=== PATIENT | female | born 1955 | race Caucasian/White ===

== ENCOUNTER 2024-04-24 20:38 | Emergency (ER) | payer MEDICARE, MEDICAID, SELFPAY ==
[2024-04-24 20:39] VITALS: BMI 17.2
--- NOTE | 2024-04-24 20:40 | PD.EDHA ---
ED Headache RME/HPI General Chief Complaint: Headache Stated Complaint: HEADACHE Time Seen by Provider: 04/24/24 20:41 Source: patient and family Arrival date/time: 04/24/24 20:38 Mode of arrival: ambulatory Limitations: no limitations RME / HPI RME / HPI Narrative: Dr. Healy?s Main ED Evaluation: The patient is a 68-year-old female, accompanied by her son, presenting to the emergency department with complaints of a sudden, severe headache, the worse she's had in her life. She reports that the onset occurred approximately one hour prior to arrival. She describes feeling a pop sensation in her head immediately before the headache began, which occurred while she was very upset. The patient denies any other associated symptoms. She also denies any prior history of similar headaches or other medical complaints at this time. Related Data Home Medications ?Medication ?Instructions ?Recorded ?Confirmed aeybqnxvhbrx-Ih-jygv-minerals 2 tab PO DAILY 01/14/18 01/14/18 (Multiple Vitamin, Womens tablet) Allergies Allergy/AdvReac Type Severity Reaction Status Date / Time No Known Allergies Allergy Verified 01/15/18 16:18 Review of Systems Review of Systems Systems Reviewed: All systems reviewed, normal except as documented Past Medical History Past Medical History NEUROLOGIC: Negative Neurological Disorders or Seizures CARDIAC: Negative Cardiac Disorders or Congestive Heart Failure RESPIRATORY: Negative Chronic Obstructive Pulmonary Disease (COPD) GASTROINTESTINAL: Negative Gastrointestinal Disorders GENITOURINARY: Negative Genitourinary Disorders or Renal Disease REPRODUCTIVE: Positive Previous Pregnancies (x2) MUSCULOSKELETAL: Negative Musculoskeletal Disorders ENDOCRINE: Negative Endocrine Disorders, Diabetes Mellitus Type 1 or Diabetes Mellitus Type 2 HEMATOLOGIC: Negative Blood Disorders OTHER HISTORY: Positive Measles; Negative Hospitalization, Autoimmune Disease, Down Syndrome, Developmental Delay, Shingles, Falls, Blood Transfusions, Blood Transfusion Reaction or Anesthesia Reactions Family History FAMILY HISTORY: Positive Family Cardiac Disorders (father (htn), (cva)) Social History SMOKING STATUS: Never smoker Past Medical History Comments PMH COMMENT: Osteomyelitis, fifth digit, right hand, 2015; cervical spine disk degeneration; atrophic vaginitis ED Exam Narrative Physical exam: GENERAL APPEARANCE: alert and oriented x 4, well-developed, well-nourished, no acute distress VITALS: All vitals were reviewed and the pulse ox is 96% on room air, which is normal according to my interpretation. HEENT: Normocephalic, atraumatic; pupils equal, round, reactive to light; EOMI; mucous membranes pink, moist; oropharynx clear NECK: Supple LUNGS: CTABL; no wheezes, no rales, no rhonchi HEART: Regular rate, regular rhythm; normal S1, S2; no murmurs ABDOMEN: non distended; normal BS; soft, no tenderness, no guarding, no rebound; no masses, no organomegaly, no hernia BACK: no CVA tenderness EXTREMITIES: atraumatic; no edema NEUROLOGIC: awake; alert and oriented x4; cranial nerves II-XII grossly intact; no focal sensory or motor deficits PSYCHIATRIC: appropriate mood and affect SKIN: warm, dry, normal color; no rashes General Limitations: Present no limitations Course Course Course Narrative: 2221: Discussed the possibility of needing a lumbar puncture and further work-up with the patient and family at bedside. Upon further discussion, patient states she does not want any procedures or further work-up at this time. Risks versus benefits were discussed with the patient declining any further work-up, and the inability to r/o CVRCVS. Patient decided to sign out AMA. Quality Measures Suspected type of Stroke: Unknown at this time Last known well (date): 04/24/24 Tenecteplase given: Reason(s) TPA not given: Symptoms suggest SAH not given stroke and none Orders Category Date Time Status Bedside Blood Glucose NOW Care 04/24/24 20:41 Active Search Strategist NOW Care 04/24/24 20:41 Active Continuous Pulse Oximetry NOW Care 04/24/24 20:41 Completed EKG (ED ONLY) *Do not use* NOW Care 04/24/24 20:41 Completed In and Out Catheter NEEDED Care 04/24/24 20:41 Active Insert IV NOW Care 04/24/24 20:41 Active Miscellaneous Nursing Order NOW Care 04/24/24 22:37 Active NIH Stroke Scale now Care 04/24/24 20:41 Active NPO NOW Care 04/24/24 20:41 Active Nurse Swallow Screen x1 Care 04/24/24 20:41 Active Consult to Neurology / Tele-Neurology Routine Cons 04/24/24 20:[address] angio stroke protocol Stat Exams 04/24/24 20:[address] stroke protocol Stat Exams 04/24/24 20:41 Completed EKG (ED Only) Stat Exams 04/24/24 20:41 Draft Alcohol, Blood Medical Stat Lab 04/24/24 20:50 Completed CBC Stat Lab 04/24/24 20:50 Completed Comprehensive Metabolic Panel Stat Lab 04/24/24 20:50 Completed Drug Screen,Urine Stat Lab 04/24/24 20:41 Ordered Magnesium Stat Lab 04/24/24 20:50 Completed Partial Thromboplastin Time Stat Lab 04/24/24 20:50 Completed Prothrombin Time with INR Stat Lab 04/24/24 20:50 Completed Troponin I Stat Lab 04/24/24 20:50 Completed Urinalysis Stat Lab 04/24/24 20:41 Ordered Acetaminophen Ivpb [Ofirmev Inj] Med 04/24/24 20:43 Discontinued 1,000 mg in 100 ml IV NOW DiphenhydrAMINE INJ [Benadryl Inj] Med 04/24/24 20:42 Discontinued 25 mg IVP X1 ONE Metoclopramide Inj [Reglan Inj] Med 04/24/24 20:42 Discontinued 10 mg IVP X1 ONE Oxygen Delivery NOW RT 04/24/24 20:41 Active Vital Signs Vital signs: Vital Signs Temperature 98.5 F 04/24/24 21:18 Pulse Rate 66 04/24/24 21:18 Respiratory Rate 16 04/24/24 21:18 Blood Pressure 136/76 H 04/24/24 21:18 Pulse Oximetry (%) 96 04/24/24 21:18 Oxygen Delivery Method Room Air 04/24/24 21:18 Procedures -ED Procedure Comment Patient's EKG at 21:12 showed NSR at 61 bpm with normal axis, no ectopy. No signs of acute ischemia. Headache MDM Narrative MDM Narrative:: Scribe Attestation: Chantal Salgado am scribing for and in the presence of Dr. Healy. Provider Notation: Although this document has been carefully reviewed, there may still be some phonetic and other typographical errors. These errors are purely grammatical due to imperfections in the software program and should not be construed in any way to compromise the substance of the patient's medical care during this visit. Patient data External records reviewed:: [facility] previous records Clinical information provided by:: patient Social determinants that could affect healthcare access:: none Patient has the following chronic illnesses:: See PMH How is presenting disease/condition affected by chronic disease/condition?: uneffected by Evaluation data The following diagnostics were reviewed and interpreted by me:: lab results, radiology exam(s) and EKG tracing(s) Lab and/or radiology exams considered but not ordered:: None Interpretation Summary: I personally reviewed the radiology data and agree with the radiologist's interpretation. Examination: CT brain head without contrast. Date and time of exam:April 24, [id number] hours INDICATIONS: Stroke alert, onset severe headache today, focal neurologic deficit Findings: No significant ventricular enlargement. Intra-axial or extra-axial hemorrhage density is not seen. No mass effect or midline shift Basal cisterns are not remarkable. Fourth ventricle is midline. Cranial vault intact. Impression: Negative for acute hemorrhage, mass effect or midline shift Dictated By: Ger Esteves MD Medications / Prescriptions Medications or Prescriptions considered but not ordered:: None Medication administrations:: Medication Administration History Discontinued Medications Diphenhydramine HCl (Diphenhydramine Inj 50 Mg/Ml Vial) 25 mg IVP X1 ONE Stop: 04/24/24 20:43 Last Admin: 04/24/24 21:10 Dose: 25 mg Documented By: CARISA Acetaminophen (Ofirmev Inj) 1,000 mg in 100 mls @ 250 mls/hr IV NOW ONE Stop: 04/24/24 21:06 Last Infusion: 04/24/24 21:31 Dose: Infused Documented By: Admin: 04/24/24 21:10 Dose: 250 mls/hr Documented By: CARISA Metoclopramide HCl (Metoclopramide Inj 5 Mg/Ml Vial 2 Ml) 10 mg IVP X1 ONE; Protocol Stop: 04/24/24 20:43 Last Admin: 04/24/24 21:10 Dose: 10 mg Documented By: TC As above, if any Consultations Consultation(s) initiated? (list below): Yes Consultation #1 (Physician, Specialty, Details): Case discussed with teleneurology, Dr. 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 He recommends performing either a lumbar puncture (LP) or head CT for further evaluation and suggests follow-up within 12 hours. The plan is to admit the patient for overnight observation. Dr. Crooks advises maintaining systolic blood pressure below 180 mmHg and managing the patient?s pain. He notes that with RCVS, headaches may resolve temporarily but can recur, with a risk of progression to subarachnoid hemorrhage (SAH) in some cases. Time: 21:30 Consultation #2 (Physician, Specialty, Details): Discussed case with [Dr. Sanon, attending Dr. Vincent] from Hospitalist service regarding admission. Discussed patients ED course, exam findings, labs, and radiology results. The Hospitalist [agrees] to accept the patient for admission. Time: 22:04 Diagnosis Differential diagnosis headache: other (SAH, intracranial bleed, temporal arteritis, cluster headache, tension headache) Most likely diagnosis given after review of the tests above:: See clinical impression Admission Indicated Admission indicated?: indicated Admission Request Was there a request for admission?: Yes Disposition Plan Disposition Plan: other (specify) (Patient signed out AMA.) Critical Care Time Critical Care Time Critical Care Time: Yes Total Critical Care Time (min.): 45 Attestation: The high probability of sudden, clinically significant deterioration in the patient?s condition required the highest level of my preparedness to intervene urgently. ? The services I provided to this patient were to treat and/or prevent clinically significant deterioration. Services included the following: chart data review, reviewing nursing notes and/or old charts, documentation time, salon sales consultant collaboration regarding findings and treatment options, medication orders and management, direct patient care, vital sign assessments and ordering, interpreting and reviewing diagnostic studies and lab tests. ? Aggregate critical care time includes only time during which I was engaged in work directly related to the patient?s care, as described above, whether at bedside or elsewhere in the Emergency Department. It did not include time spent performing other reported procedures or the services of residents, students, nurses or physician assistants. Discharge Plan Plan Patient Disposition: Left Against Medical Advice Prescriptions/Referrals Prescriptions/Med Rec: No Action lywumpxnqroj-Cn-snmg-minerals [Multiple Vitamin, Womens] Tablet 2 tab PO DAILY Problem List Clinical Impression: Severe headache Patient/Caregiver Discharge Instructions Print Language: Upper Sorbian
--- NOTE | 2024-04-24 20:41 | XR_ITS ---
Examination: CT brain head without contrast. 2-D sagittal coronal reconstructions Date and time of exam:April 24, 20242054 hours INDICATIONS: Stroke alert, onset severe headache today, focal neurologic deficit CTDI: vol (mGy):45.2 DLP: (mGycm):900 Technique: Multiple CT axial sections of the brain have been obtained, 5 mm slice thickness. Contrast has not been administered. 2-D sagittal, coronal reconstructions have been obtained Low dose protocols were performed. One or more of the following dose reduction techniques were used; automated exposure control, adjustment of the mA and/or KV according to patient size, use of iterative reconstruction technique. Findings: No significant ventricular enlargement. Intra-axial or extra-axial hemorrhage density is not seen. No mass effect or midline shift Basal cisterns are not remarkable. Fourth ventricle is midline. Cranial vault intact. Impression: Negative for acute hemorrhage, mass effect or midline shift
--- NOTE | 2024-04-24 20:41 | EKG_ITS ---
[facility] Test Date: 2024-04-24 Pat Name: MACIEJ HOYOS Department: Room: - Gender: Female Plumbing Technician: : 1955 Requested By: Dalton Odom Order Number: [id number] Reading MD: Dalton Odom Measurements Intervals [place] Rate: 61 P: 68 DE: 141 QRS: 84 QRSD: 85 T: 76 QT: 406 QTc: 411 Interpretive Statements SINUS RHYTHM POSSIBLE LEFT ATRIAL ENLARGEMENT [-0.1mV P-WAVE IN V1/V2] Compared to ECG 01/14/2018 08:56:05 No significant changes /store/S0/[id number]/ecg/[id number].pdf
--- NOTE | 2024-04-24 20:41 | XR_ITS ---
Examination: CTA carotids with intravenous contrast CTA brain, head with intravenous contrast. 2-D sagittal, coronal reconstructions. 3-D reconstructions. Exam date and time: April 24, 20240 hours INDICATIONS: Stroke alert, onset focal neurologic deficits of her headache today CTDI: vol (mGy) 9.99 DLP: (mGycm) 85 Technique: Multiple CTA axial brain, head carotid images post intravenous contrast injection 100 cc, [id number]. 2-D sagittal, coronal reconstructions. 3-D reconstructions, 3-D post processing including vascular maximum intensity projection images. Low dose protocols were performed. One or more of the following dose reduction techniques were used; automated exposure control, adjustment of the mA and/or KV according to patient size, use of iterative reconstruction technique. Findings: No common carotid carotid bifurcation or internal carotid artery significant stenoses Dominant left vertebral artery with no critical stenoses Intracranial vertebral arteries and basilar artery posterior cerebral branches fill with no large vessel occlusions Petrous and juxtasellar supraclinoid internal carotid arteries M1 segments middle cerebral arteries middle cerebral artery trifurcation vessels and anterior cerebral arteries fill with no occlusions IMPRESSION: No significant neck arterial stenoses No cerebral large vessel arterial occlusions or thrombus Consider brain MRI MRA without contrast, stroke protocol, follow-up
--- NOTE | 2024-04-24 20:45 | PC.NURSE ---
stroke consult Case # [id number]
[2024-04-24] MEDS: ACETAMINOPHEN IVPB 1,000 MG/100 ML VIAL 250 MG IV (21:10)
[2024-04-24] MEDS: METOCLOPRAMIDE INJ 5 MG/ML VIAL 2 ML 10 MG IVP (21:10)
[2024-04-24] MEDS: DiphenhydrAMINE INJ 50 MG/ML VIAL 25 MG IVP (21:10)
[2024-04-24 21:18] VITALS: BP 136/76; PULSE 66; PULSE 68; PULSE 71; RESP 16; RESP 19; RESP 96; TEMP 36.9; O2SAT 96
--- NOTE | 2024-04-24 21:30 | PD.TNEURO ---
Tele Neuro Consultation Consultation Date 04/24/24 Most Recent Vital Signs Last Vital Signs Temp 98.5 F 04/24/24 21:18 Pulse 68 04/24/24 21:18 Resp 19 04/24/24 21:18 BP 136/76 H 04/24/24 21:18 Pulse Ox 96 04/24/24 21:18 O2 Del Method Room Air 04/24/24 21:18 Consultation Narrative [facility] Tele[facility]urology Consult [facility] Patient Name:???alex frost Date of :???1955 Identification Number:??? Date of Service:???04/24/2024 20:44:19 Diagnosis:?G44.201 - Headache (if no chronic) (thunderclap- possible RCVS) Impression: ?68yo woman with no significant PMH presents with thunderclap headache, reports difficulty walking but able to walk on my exam. Exam is non-focal. Given emotional/stress trigger possible this is RCVS- reversible cerebral vasoconstriction syndrome but SAH needs to be fully excluded. CTA pending. Patient reports she cannot have MRI due to metal makeup on her face. Recommend LP with CSF glucose, cell count/diff, protein, gram stain/culture, VZV and HSV PCR if patient agreeable. Recommend follow-up head CT w/o in 12 hrs if MRI cannot be done. Keep sBP <180. Short term opiates may be reasonable for this type of headache. Our recommendations are outlined below. Recommendations: ? Stroke/Telemetry Floor ? Neuro Checks ? Bedside Swallow Eval ? DVT Prophylaxis ? IV Fluids, Normal Saline ? Head of Bed 30 Degrees ? Euglycemia and Avoid Hyperthermia (PRN Acetaminophen) ?Keep sBP <180 ?LP with CSF glucose, cell count/diff, protein, gram stain/culture, VZV and HSV PCR ?follow-up head CT in 12 hrs ?Pain control Sign Out: ? Discussed with Emergency Department Provider Advanced Imaging: Advanced imaging has been ordered. Results pending. Metrics: Last Known Well: 04/24/2024 20:00:00 Dispatch Time: 04/24/2024 20:44:19 Arrival Time: 04/24/2024 20:38:00 Initial Response Time: 04/24/2024 20:50:34Symptoms: headache. Initial patient interaction: 04/24/2024 20:56:49 NIHSS Assessment Completed: 04/24/2024 21:08:28Patient is not a candidate for Thrombolytic. Thrombolytic Medical Decision: 04/24/2024 21:08:29Patient was not deemed candidate for Thrombolytic because of following reasons: Symptoms suggest subarachnoid hemorrhage . Stroke severity too mild (non-disabling) . CT head showed no acute hemorrhage or acute core infarct. Primary Provider Notified of Diagnostic Impression and Management Plan on: 04/24/2024 21:25:06 History of Present Illness:Patient is a 68 year old Female. Patient was brought by private transportation with symptoms of headache. 68yo woman with no significant PMH presents with sudden onset headache and difficulty walking. She reports 1hr ago sudden onset of a severe bitemporal headache which has persisted. She reported some difficulty walking with this but appears on my exam to be subjective related to the severity of the headache itself and is able to walk on my exam. Not on any antiplatelet or anticoagulants. She reports having a very emotional argument with a difficult family member and immediately after this was when the headache began. Doesn't get migraines ever. Has never had headache like this before. Headache reached maximal intensity in seconds per patient. Past Medical History: ?There is no history of Hypertension Medications: No Anticoagulant use? No Antiplatelet use Reviewed EMR for current medications Allergies:? Reviewed Social History: Drug Use: No Family History: There is no family history of premature cerebrovascular disease pertinent to this consultation ROS : 14 Points Review of Systems was performed and was negative except mentioned in HPI. Past Surgical History: There Is No Surgical History Contributory To Today?s Visit Examination: BP(136/76),?Pulse(68), 1A: Level of Consciousness - Alert; keenly responsive?+ 0 1B: Ask Month and Age - Both Questions Right?+ 0 1C: Blink Eyes & Squeeze Hands - Performs Both Tasks?+ 0 2: Test Horizontal Extraocular Movements - Normal?+ 0 3: Test Visual Arechiga - No Visual Loss?+ 0 4: Test Facial Palsy (Use Grimace if Obtunded) - Normal symmetry?+ 0 5A: Test Left Arm Motor Drift - No Drift for 10 Seconds?+ 0 5B: Test Right Arm Motor Drift - No Drift for 10 Seconds?+ 0 6A: Test Left Leg Motor Drift - No Drift for 5 Seconds?+ 0 6B: Test Right Leg Motor Drift - No Drift for 5 Seconds?+ 0 7: Test Limb Ataxia (FNF/Heel-Cornelius) - No Ataxia?+ 0 8: Test Sensation - Normal; No sensory loss?+ 0 9: Test Language/Aphasia - Normal; No aphasia?+ 0 10: Test Dysarthria - Normal?+ 0 11: Test Extinction/Inattention - No abnormality?+ 0 NIHSS Score:?0 NIHSS Free Text :?holding her head but moves head and neck around actively without stiffness, speaking in complete sentences, roll panner strength strong and equal per RN, able to take stable steps with RN but holds her head as she does so, redness in face Pre-Morbid Modified [place] Scale:0 Points = No symptoms at all Spoke with :?Dr. Healy This consult was conducted in real time using interactive audio and video technology. Patient was informed of the technology being used for this visit and agreed to proceed. Patient located in hospital and provider located at home/office setting. Patient is being evaluated for possible acute neurologic impairment and high probability of imminent or life-threatening deterioration. I spent total of 40 minutes providing care to this patient, including time for face to face visit via telemedicine, review of medical records, imaging studies and discussion of findings with providers, the patient and/or family. Dr Sinan Crooks [facility] For Inpatient follow-up with [facility] physician please call [facility] at . As we are not an outpatient service for any post hospital discharge needs please contact the hospital for assistance. If you have any questions for the [facility] physicians or need to reconsult for clinical or diagnostic changes please contact us via [facility] at .
[2024-04-24 21:37] LABS: Basophils % (Auto) 1 % (0-2.5); Eosinophils % (Auto) 0 % (0-10); Hematocrit 39.2 % (36.0-46.0); Hemoglobin 13.5 g/dL (12.0-16.0); Immature Granulocytes % (Auto) 0 % (0-0); Immature Granulocytes Auto 0.03 Thou/mm3 (0.00-0.00); Lymphocytes % (Auto) 12 % (10-50); Mean Corpuscular HGB Conc 34.4 g/dl (31.0-37.0); Mean Corpuscular Hemoglobin 30.1 pg (25.0-35.0); Mean Corpuscular Volume 87 fL (80-100); Monocytes # (Auto) 0.5 Thou/mm3 (0.0-0.8); Monocytes % (Auto) 6 % (0-12); Neutrophils % (Auto) 81 % (37-80); Nucleated Red Blood Cell % 0 /100 WBC (0); Platelet Count 323 Thou/mm3 (140-440); RDW Standard Deviation 42.5 fL (36.4-46.3); Red Blood Count 4.49 Miln/mm3 (4.00-5.20); White Blood Count 8.6 Thou/mm3 (3.6-11.0)
[2024-04-24 21:46] LABS: INR 1.1 (0.9-1.3); Partial Thromboplastin Time 24.4 Seconds (22.0-36.0); Prothrombin Time 11.6 Seconds (9.0-12.2)
[2024-04-24 21:51] LABS: Alanine Aminotransferase 19 U/L (10-49); Albumin, Serum 4.8 gm/dL (3.4-4.8); Albumin/Globulin Ratio 1.9 (1.2-2.2); Alcohol, Blood Medical < 3.0 mg/dL (0-10.0); Alkaline Phosphatase 56 U/L (46-116); Anion Gap 9 (7-16); Aspartate Amino Transferase 36 U/L (0-34); BUN/Creatinine Ratio 20 Ratio (12-20); Bilirubin,Total 0.7 mg/dL (0.3-1.2); Blood Urea Nitrogen 12 mg/dL (9-23); Calcium 9.5 mg/dL (8.3-10.6); Calcium (Corrected) 9.5 mg/dL (8.5-10.1); Carbon Dioxide 24.8 mMol/L (20.0-31.0); Chloride 107 mMol/L (98-107); Creatinine (Component) 0.6 mg/dL (0.6-1.3); Estimated Creatinine Clearance 71.7 mL/min (>60); Globulin 2.5 gm/dL (2.3-3.5); Glucose 102 mg/dL (74-106); Osmolality,Calculated 280 (275-295); Potassium 4.2 mMol/L (3.4-5.1); Sodium 141 mMol/L (136-145); Total Protein 7.3 gm/dL (5.7-8.2); Troponin I < 0.020 ng/mL (0.0-0.045); eGFR > 60 See Note
[2024-04-24 22:50] VITALS: BP 114/71
== END 2024-04-24 23:06 | disposition left against medical advice (07) ==
LOC: SERX 23:05
PROVIDERS: Emergency Provider Emergency Medicine; PCP Nurse Practitioner Family
DX: G44.53 Primary thunderclap headache (principal); R94.31 Abnormal electrocardiogram [ECG] [EKG]; Z53.29 Procedure and treatment not carried out because of patient's decision for other reasons
CPT/HCPCS: 36415; 70450; 70496; 70498; 80053; 80307; 80320; 81001; 83735; 84484; 85025; 85610; 85730; 93005; 96365; 96375; 99291; A4649; J0131; J1200; J2765; Q9967; G0480